=== PATIENT | male | born 1960 | race Caucasian/White ===

== ENCOUNTER 2024-10-15 08:05 | Emergency (ER) | payer MEDICARE, OTHER ==
[~2024-10-15] VITALS: Ht 175.3 cm; Wt 81.0 kg
[2024-10-15 08:07] VITALS: O2SAT 100
[2024-10-15 11:00] VITALS: O2SAT 100
[2024-10-15 13:49] VITALS: TEMP 37
[2024-10-15 14:08] VITALS: BP 143/63; PULSE 69; RESP 9
== END 2024-10-15 14:37 ==
LOC: ER 08:05
DX: R09.89 Other specified symptoms and signs involving the circulatory and respiratory systems (principal)
CPT/HCPCS: 71045; 99283; A4606